=== PATIENT | male | born 1990 ===

== ENCOUNTER 2019-06-11 23:53 | Emergency (ER) | payer OTHER ==
[~2019-06-11] VITALS: Ht 167.6 cm; Wt 72.6 kg
[~2019-06-11 23:53] MED LIST: HYDACE25S PR
[2019-06-12] MEDS ORDERED: Ocuflox5 ML BOTHEYES (03:33)
[2019-06-12] MEDS ORDERED: Ocuflox5 ML LEFTEAR (03:59)
== END 2019-06-12 04:05 | disposition home or self-care (01) ==
LOC: ER 23:53
DX: H72.92 Unspecified perforation of tympanic membrane, left ear (principal); H65.92 Unspecified nonsuppurative otitis media, left ear
CPT/HCPCS: 99282

== ENCOUNTER 2019-06-27 17:28 | Emergency (ER) | payer OTHER ==
[~2019-06-27] VITALS: Ht 152.4 cm; Wt 73.0 kg
[~2019-06-27 17:28] MED LIST changes: +Ocuflox5 ML BOTHEYES; +Ocuflox5 ML LEFTEAR
[2019-06-27] MEDS ORDERED: CLIN300 PO (20:42)
== END 2019-06-27 20:50 | disposition home or self-care (01) ==
LOC: ER 17:28
DX: L97.519 Non-pressure chronic ulcer of other part of right foot with unspecified severity (principal); L03.115 Cellulitis of right lower limb; L02.611 Cutaneous abscess of right foot; F17.210 Nicotine dependence, cigarettes, uncomplicated
CPT/HCPCS: 96365; 99283-25